=== PATIENT | male | born 1970 | race American Indian/Alaskan Native ===

== ENCOUNTER 2017-03-15 13:21 | Emergency (ER) | payer OTHER ==
[2017-03-15 15:47] VITALS: BP 138/82
[2017-03-15] MEDS ORDERED: MOTRIN PO ONE (19:49)
--- NOTE | 2017-03-15 19:56 | Emergency Department Report ---
ED Lower Extremity HPI - General Chief Complaint: Extremity Injury, Lower Stated Complaint: RIGHT KNEE PAIN Time Seen by Provider: 03/15/17 18:41 Source: patient Mode of arrival: Ambulatory Limitations: No Limitations - History of Present Illness Initial Comments: This is a 46-year-old nontoxic, well nourished in appearance, no acute signs of distress presents to the ED with c/o of chronic intermittent right knee pain. Patient denies any trauma. Patient stated this has been going on for almost a year. Patient stated Percocet is what helps him with pain and is requesting for a refill. Denies any joint redness, fever, chills, headache, joint swelling, chest pain, shortness of breath, headache, stiff neck, nausea, vomiting. Denies numbness or tingling. Denies calf pain with calf tenderness. Denies recent travels, long car rides or recent hospital stays. Denies any allergies or significant past medical history. MD Complaint: knee injury -: year(s) Injury: Knee: Right Severity: mild Severity scale (0 -10): 8 Improves With: nothing Worsens With: nothing Associated Symptoms: ambulatory. denies: snap/pop sensation, swelling, numbness , tingling, unable to bear weight, able to partially bear weight - Related Data Previous Rx's Medication Instructions Recorded Last Taken Type Acetaminophen/Codeine [Tylenol #3] 1 tab PO Q8H PRN #15 tab 01/06/15 Unknown Rx Indomethacin [Indocin] 25 mg PO Q8H #45 capsule 01/06/15 Unknown Rx methOCARBAMOL [Robaxin TAB] 500 mg PO BID #20 tab 01/06/15 Unknown Rx Docusate Sodium [Colace] 100 mg PO BID #30 capsule 07/21/15 Unknown Rx Magnesium Hydroxide [Milk of 400 mg PO TID #1 bottle 07/21/15 Unknown Rx Magnesia] methOCARBAMOL [Robaxin TAB] 500 mg PO BID #20 tab 07/21/15 Unknown Rx traMADol [Ultram] 50 mg PO Q6HR PRN #20 tablet 07/21/15 Unknown Rx traMADol [Ultram] 50 mg PO Q6HR PRN #15 tablet 03/15/17 Unknown Rx Allergies Allergy/AdvReac Type Severity Reaction Status Date / Time No Known Allergies Allergy Verified 07/21/15 12:18 ED Review of Systems ROS: Stated complaint: RIGHT KNEE PAIN Other details as noted in HPI Constitutional: denies: chills, fever Eyes: denies: eye pain, eye discharge, vision change ENT: denies: ear pain, throat pain Respiratory: denies: cough, shortness of breath, wheezing Cardiovascular: denies: chest pain, palpitations Endocrine: no symptoms reported Gastrointestinal: denies: abdominal pain, nausea, diarrhea Genitourinary: denies: urgency, dysuria Musculoskeletal: arthralgia. denies: back pain, joint swelling Skin: denies: rash, lesions Neurological: denies: headache, weakness, paresthesias Psychiatric: denies: anxiety, depression Hematological/Lymphatic: denies: easy bleeding, easy bruising ED Past Medical Hx - Surgical History Additional Surgical History: Removal of kidney stones; abdominal hernia repair - Social History Smoking Status: Unknown if ever smoked Substance Use Type: None - Medications Home Medications: Home Medications Medication Instructions Recorded Confirmed Last Taken Type Acetaminophen/Codeine [Tylenol #3] 1 tab PO Q8H PRN #15 tab 01/06/15 Unknown Rx Indomethacin [Indocin] 25 mg PO Q8H #45 capsule 01/06/15 Unknown Rx methOCARBAMOL [Robaxin TAB] 500 mg PO BID #20 tab 01/06/15 Unknown Rx Docusate Sodium [Colace] 100 mg PO BID #30 capsule 07/21/15 Unknown Rx Magnesium Hydroxide [Milk of 400 mg PO TID #1 bottle 07/21/15 Unknown Rx Magnesia] methOCARBAMOL [Robaxin TAB] 500 mg PO BID #20 tab 07/21/15 Unknown Rx traMADol [Ultram] 50 mg PO Q6HR PRN #20 tablet 07/21/15 Unknown Rx traMADol [Ultram] 50 mg PO Q6HR PRN #15 tablet 03/15/17 Unknown Rx ED Physical Exam - General Limitations: No Limitations General appearance: alert, in no apparent distress - Head Head exam: Present: atraumatic, normocephalic, normal inspection - Eye Eye exam: Present: normal appearance, PERRL, EOMI. Absent: scleral icterus, conjunctival injection, nystagmus, periorbital swelling, periorbital tenderness Pupils: Present: normal accommodation - ENT ENT exam: Present: normal exam, normal orophraynx, mucous membranes moist, TM's normal bilaterally, normal external ear exam - Neck Neck exam: Present: normal inspection, full ROM. Absent: tenderness, meningismus, lymphadenopathy, thyromegaly - Respiratory Respiratory exam: Present: normal lung sounds bilaterally. Absent: respiratory distress, wheezes, rales, rhonchi, stridor, chest wall tenderness, accessory muscle use, decreased breath sounds, prolonged expiratory - Cardiovascular Cardiovascular Exam: Present: regular rate, normal rhythm, normal heart sounds. Absent: bradycardia, tachycardia, irregular rhythm, systolic murmur, diastolic murmur, rubs, gallop - GI/Abdominal GI/Abdominal exam: Present: soft, normal bowel sounds. Absent: distended, tenderness, guarding, rebound, rigid, diminished bowel sounds - Rectal Rectal exam: Present: deferred - Extremities Exam Extremities exam: Present: normal inspection, full ROM, tenderness, normal capillary refill. Absent: pedal edema, joint swelling, calf tenderness - Expanded Lower Extremity Exam Right Hip exam: Present: normal inspection, full ROM Upper Leg exam: Present: normal inspection, full ROM Knee exam: Present: normal inspection, full ROM, tenderness, full knee extension. Absent: swelling, abrasion, laceration, ecchymosis, deformity, crepidus, dislocation, erythema, effusion, pain w/ pronation/supination, posterior draw sign, pain/laxity with valgus, pain/laxity with varus Lower Leg exam: Present: normal inspection, full ROM. Absent: tenderness, swelling, abrasion, laceration, ecchymosis, deformity, crepidus, dislocation, erythema, palpable cord, Abdiel's sign Ankle exam: Present: normal inspection, full ROM Foot/Toe exam: Present: normal inspection, full ROM Neuro vascular tendon exam: Present: no vascular compromise. Absent: pulse deficit, abnormal cap refill, motor deficit, sensory deficit, tendon deficit, extremity cold to touch, pallor, abnormal 2-point discrimination, decreased fine /light touch, foot drop, peroneal nerve deficit, significant pain with passive ROM of distal joint Gait: Positive: observed and normal - Back Exam Back exam: Present: normal inspection, full ROM. Absent: tenderness, CVA tenderness (R), CVA tenderness (L), muscle spasm, paraspinal tenderness, vertebral tenderness, rash noted - Neurological Exam Neurological exam: Present: alert, oriented X3, CN II-XII intact, normal gait, reflexes normal - Psychiatric Psychiatric exam: Present: normal affect, normal mood - Skin Skin exam: Present: warm, dry, intact, normal color. Absent: rash - Other Other exam information: There is no signs of erythema, joint swelling or joint redness. No signs of cellulitis noted. Not warm to touch. Normal ROM with no pain. ED Course Vital Signs 03/15/17 15:46 Temperature 97.9 F Pulse Rate 63 Respiratory 18 Rate Blood Pressure 138/82 O2 Sat by Pulse 100 Oximetry - Reevaluation(s) Reevaluation #1: 03/15/17 20:02 Patient is speaking in full sentences with no signs of distress noted. - Consultations Consultation #1: 03/15/17 20:02 Dr. Dominguez has been consulted about patient history, physical exam, and imaging studies and agrees to d/c with follow-up. ED Lower Extremity MDM - Medical Decision Making This is a 46-year-old male that presents with chronic intermittent pain. PAtient is stable and was examined by me. Xray obtained and dictated by radiologist, this patient was notified of x-ray results. Dr. Dominguez was conulsted and agrees to d./c plan with f.u. Patient stated has been seen by numerous orthopedic doctors and has been taking Percocet and is requesting percocet refill. There is not joint redness or joint swelling. There is no joint cellulitis noted. Normal ROM. Patient received Motrin in the ED. Patient received Ultram at d/c and received knee immobilizer. Patient was instructed to follow-up with a orthopedic doctor in 24 hours or if symptoms worsen such as joint swelling, joint redness, fever or any abnormal symptoms to return to emergency room as soon as possible. At time time of discharge, the patient does not seem toxic or ill in appearance. No acute signs of distress noted. Patient agrees to discharge treatment plan of care. No further questions noted by the patient. Critical care attestation.: If time is entered above; I have spent that time in minutes in the direct care of this critically ill patient, excluding procedure time. ED Disposition Clinical Impression: Chronic pain of right knee Disposition: DC-01 TO HOME OR SELFCARE Is pt being admited?: No Does the pt Need Aspirin: No Condition: Stable Instructions: Tramadol (By mouth), Arthralgia (ED), RICE Therapy (ED) Additional Instructions: Follow-up with a orthopedic doctor in 24 hours or if symptoms worsen such as joint swelling, joint redness, fever or any abnormal symptoms to return to emergency room as soon as possible. Do not operate any machinery while taking Ultram. Prescriptions: traMADol [Ultram] 50 mg PO Q6HR PRN #15 tablet PRN Reason: Pain Referrals: [facility] [Outside] - 3-5 Days [facility] [Outside] - 3-5 Days PRIMARY CAREMD [Primary Care Provider] - 3-5 Days RUTH SHIN MD [Staff Physician] - 24 Hours Forms: Work/School Release Form(ED)
--- NOTE | 2017-03-15 19:56 | XRay Report ---
FINAL REPORT PROCEDURE: XR KNEE 3V RT TECHNIQUE: Three-view right knee HISTORY: pain and swelling COMPARISON: No prior studies are available for comparison. FINDINGS: Mild degenerative changes of the right knee. Moderate to large suprapatellar effusion. Suspect small flabella. No definite acute fracture. Right knee synovitis not excludable. Consider followup MRI with IV gadolinium if warranted. IMPRESSION: Soft tissue swelling with effusion. No definite fracture.
== END 2017-03-15 20:52 | disposition home or self-care (01) ==
LOC: ED 13:21
DX: M25.561 Pain in right knee (principal); G89.29 Other chronic pain

== ENCOUNTER 2017-11-18 13:09 | Emergency (ER) | payer SELFPAY ==
[2017-11-18 13:21] VITALS: BP 121/72
[2017-11-18] MEDS ORDERED: ULTRAM PO ONE (17:57)
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
[2017-11-18 19:31] LABS: BUN/Creatinine Ratio 11; Blood Urea Nitrogen 10 mg/dL (9-20); Calcium 8.8 mg/dL (8.4-10.2); Hemolysis Index 2
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
== END 2017-11-18 20:14 | disposition home or self-care (01) ==
LOC: ED 13:09
DX: S39.012A Strain of muscle, fascia and tendon of lower back, initial encounter (principal); S76.912A Strain of unspecified muscles, fascia and tendons at thigh level, left thigh, initial encounter; S76.911A Strain of unspecified muscles, fascia and tendons at thigh level, right thigh, initial encounter; V49.9XXA Car occupant (driver) (passenger) injured in unspecified traffic accident, initial encounter; Y93.89 Activity, other specified; Y99.8 Other external cause status; Y92.410 Unspecified street and highway as the place of occurrence of the external cause
CPT/HCPCS: 36415; 80048; 83735; 99283